=== PATIENT | male | born 1965 | race Caucasian/White ===

== ENCOUNTER 2024-04-24 22:06 | Emergency (ER) | payer SELFPAY ==
[2024-04-24 22:23] VITALS: TEMP 99.2
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
[2024-04-24 23:35] LABS: Absolute Neutrophil Ct (ANC) 3.48 x10^3/uL (1.78-5.38); BASOPHIL % 0.7 % (0.2-1.2); Basophil (Absolute #) 0.04 x10^3/uL (0.01-0.08); Eosinophil % 4.5 % (0.8-7.0); Eosinophil (Absolute #) 0.25 x10^3/uL (0.04-0.54); Hematocrit 32.6 % (40.1-51.0); Hemoglobin 11.1 g/dL (13.7-17.5); IMMATURE GRAN # 0.02 x10^3u/L (0.001-0.031); IMMATURE GRAN % 0.4 % (0.001-0.429); Lymphocyte (Absolute #) 1.29 x10^3/uL (1.32-3.57); Mean Cell Volume 98.2 fL (79.0-92.2); Mean Corpuscular Hemoglobin 33.4 pg (25.7-32.2); Mean Platelet Volume 9.6 fL (9.4-12.4); Monocyte (Absolute #) 0.53 x10^3/uL (0.30-0.82); Monocytes % 9.4 % (5.3-12.2); Platelet Count 202 x10^3/uL (163-337); Red Blood Count 3.32 x10^6/uL (4.63-6.08); Red Cell Distribution Width 13.4 % (11.6-14.4); White Blood Count 5.6 x10^3/uL (4.23-9.07)
[2024-04-24 23:36] LABS: Erythrocyte Sedimentation Rate 1 mm/hr (0-15)
[2024-04-24 23:51] LABS: ANION GAP 14.2 MEQ/L (5-15); BILIRUBIN,TOTAL 0.3 mg/dL (0.2-1.3); Calcium 8.5 mg/dL (8.4-10.2); Creatinine 1 0.96 mg/dL (0.66-1.25); EST GLOMERULAR FILTRATION RATE 91.6 ML/MIN; Potassium 3.8 mmol/L (3.5-5.1); Total Protein 6.3 g/dL (6.3-8.2)
[2024-04-25 00:21] LABS: PROCALCITONIN 0.04 ng/mL (0.030-0.080)
--- NOTE | 2024-04-25 01:40 | XRAY ---
CLINICAL HISTORY: swelling COMPARISON: No previous studies are available for comparison. TECHNIQUE: CT scan of the right lower extremity was performed without the administration of intravenous contrast. Contiguous axial images were obtained, with coronal and sagittal reformatted images reviewed. One of the following dose reduction techniques was utilized for this exam. Automated exposure control, adjustment of the mA and/or kV according to patient size, and use of iterative reconstruction. FINDINGS: Soft tissue swelling with subcutaneous fat stranding and fluid seen involving the right lower remedy extremity from the knee joint to foot. Possibility of cellulitis/inflammatory changes. Recommended clinical correlation Mild right knee joint effusion noted with extension in suprapatellar recess. Small Cardozo's cyst noted. Degenerative changes seen in knee and ankle joints. Post right hip arthroplasty status. No orthopedic hardware related complications. Soft screw fixation seen in the proximal tibia. Localized fluid collection with interspersed hyperdensities seen overlying the medial gastrocnemius muscle and midportion of right leg. Possible Age-indeterminate hematoma. Localized fluid collection is seen along the tendon of the tibialis posterior. 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 IMPRESSION: 1. Soft tissue swelling with subcutaneous fat stranding and fluid seen involving the right lower extremity from the knee joint to foot. Possibility of cellulitis/inflammatory changes. Recommended clinical correlation 2. Mild right knee joint effusion with extension in suprapatellar recess. 3. Small Cardozo's cyst 4. Localized fluid collection with interspersed hyperdensities seen overlying the medial gastrocnemius muscle and midportion of right leg. Possible Age-indeterminate hematoma which might be secondary to muscle strain. 5. Localized fluid collection along the tendon of the tibialis posterior, Possible tenosynovitis. MRI is recommended if clinically warranted 6. 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 7. Degenerative changes seen in knee and ankle joints. 8. Post right hip arthroplasty status. Soft screw fixation seen in the proximal tibia. No orthopedic hardware-related complications. [facility] ER was called at [phone] at 12:32 AM [facility], 04/25/[address] Sanchez was informed regarding the presence of Significant Medical Findings in the report. Electronically Signed by: Araseli Pleitez MD. (04/25/2024 01:35:34 EDT)
[2024-04-25 01:57] VITALS: O2SAT 97
[2024-04-25 02:06] VITALS: RESP 17
[2024-04-25 02:07] VITALS: BP 140/88; PULSE 87
[2024-04-25] MEDS: KEFLEX 500 MG PO ONE (02:11)
[2024-04-25] MEDS ORDERED: KEFLEX 500 MG ONE (02:11)
== END 2024-04-25 02:26 | disposition home or self-care (01) ==
LOC: ED 22:06
DX: S86.911A Strain of unspecified muscle(s) and tendon(s) at lower leg level, right leg, initial encounter (principal); M76.821 Posterior tibial tendinitis, right leg; S80.11XA Contusion of right lower leg, initial encounter; W22.09XA Striking against other stationary object, initial encounter; Y93.52 Activity, horseback riding; M79.89 Other specified soft tissue disorders; L03.115 Cellulitis of right lower limb; I10 Essential (primary) hypertension; Z79.899 Other long term (current) drug therapy
CPT/HCPCS: 36415; 73700; 80053; 83605; 83880; 84145; 85025; 85652; 99283; A9270-GY